=== PATIENT | male | born 1985 | race Caucasian/White ===

== ENCOUNTER 2021-08-03 20:40 | Emergency (ER) | payer OTHER, SELFPAY ==
[2021-08-03 20:41] VITALS: BP 128/72; PULSE 71; RESP 15; TEMP 36.2; O2SAT 99; BMI 23.1
[2021-08-03 21:27] VITALS: BP 111/62; RESP 16; O2SAT 98
--- NOTE | 2021-08-03 22:04 | EX.ED.DYSGE1 ---
HPI History of Present Illness Chief Complaint: ETOH Intox Informant: patient and spouse/S.O. Onset/Context/Timing Onset: Today Narrative Narrative: Patient's called EMS due to decreased level of consciousness and vomiting. She did not realize that he had been drinking alcohol all night. Patient states he feels fine except for nausea and being intoxicated. It sounds like according to nurses and EMS, the found out he was drinking at all upon her arrival here and talking with the nurses. On further discussion, these 2 adults have children that they have a phthalic acid purifier for, and the phthalic acid purifier was arrested this morning after they discovered that he was illegally involved in child pornography. The states it has been a bad day, and this is just the lei on top. They both feel bad about being here, I asked if the patient was having thoughts of harming himself, he did not answer. The states that he is feeling guilty about this whole ordeal, and stressed and it is just the alcohol talking. They already have CPS involved with regards to the social situation at their home. [facility] Medical History Coarctation of aorta Home Medications promethazine 25 mg PO Q6H PRN PRN #10 tablet 12/19/14 [Rx Last Taken Unknown] Allergy/AdvReac Type Severity Reaction Status Date / Time amoxicillin [Amoxicillin] Allergy Swelling Verified 08/03/21 20:41 Social History Smoking Status: Former smoker ROS ROS ED Constitutional Constitutional ED: Denies chills or fever(s) Eyes Eyes: Denies change in vision or diplopia ENT ENT ED: Denies rhinorrhea or sore throat Cardiovascular Cardiovascular: Denies chest pain or palpitations Respiratory/Chest Respiratory/Chest: Denies cough or dyspnea Gastrointestinal Gastrointestinal: Reports nausea and vomiting; Denies abdominal pain or diarrhea Genitourinary Genitourinary ED: Denies dysuria or hematuria Musculoskeletal Musculoskeletal: Denies back pain or neck pain Integumentary Denies abscess or rash Neurologic Neurologic: Denies headache(s), paresthesias or weakness Psychiatric Psychiatric: Reports as per HPI, anxiety and depression EXAM Physical Exam Const Vital Signs: 08/03/21 20:41 08/03/21 21:27 Temperature 97.2 F L Temperature Source Temporal Pulse Rate 71 Respiratory Rate 15 16 Blood Pressure 128/72 H 111/62 Blood Pressure Mean 90 78 Blood Pressure Source Monitor Blood Pressure Position Sitting Blood Pressure Location Left Arm Pulse Ox 99 98 Oxygen Delivery Method Room Air Room Air Positive well nourished and well developed Constitutional Narrative: Patient appears intoxicated but is conversive and cooperative in no distress General Appearance ED: well developed and NAD HEENT Reports moist mucous membranes normocephalic and atraumatic Eyes PERRL and EOMs intact bilaterally Neck full ROM and supple Resp normal respiratory effort and clear to auscultation bilaterally Cardio regular rate, regular rhythm and no murmurs GI non-tender and non-distended Auscultation: normoactive bowel sounds Palpation: soft Back/Spine no CVA tenderness General Back: other FROM Extremity normal to inspection General Extremety ED: Negative for edema, pulses abnormal or tenderness General Extremity: Negative for edema or pulses abnormal Neuro oriented x3, CN's II-XII intact bilaterally and no sensory deficits noted Sensorium / Orientation: awake and alert Motor Exam: strength 5/5 throughout Psych Psych Narrative: Depressed affect without active suicidal ideation, hallucinations, or delusions. Logical goal-directed thoughts intact. Skin no rashes or lesions noted and no wounds MDM MDM MDM Narrative Medical decision making narrative: Patient was treated with a liter of IV fluid and Zofran, he was able to tolerate oral fluids after that, and was feeling somewhat better. After discussion with he and his , he contracts verbally for safety, he does not feel suicidal, and he and his both are comfortable going home together. Discharge Plan Triage Chief Complaint: ETOH Intox Other Complaint: Syncope ED Provider: Alexi Johnson Dx/Rx/DC Orders Clinical Impression: Alcohol intoxication Instructions: ED Alcohol Intoxication Prescriptions: No Action promethazine 25 MG tablet 25 mg PO Q6H PRN PRN (Reason: Nausea) Qty: 10 RF: 0 Primary Care Provider: Care Physician,No Primary Referrals: Leticia Ríos [NON-STAFF] - As Needed Care Physician,No Primary [Primary Care Provider] - Disposition Disposition: Home, Self Care
[2021-08-03] MEDS: 0.9% Normal Saline 1,000 ML 999 ML IV (22:15)
[2021-08-03 22:20] VITALS: BP 115/57
[2021-08-03] MEDS: Ondansetron 4 MG/2 ML Vial IV (22:20)
[2021-08-03 23:07] VITALS: BP 105/74
[2021-08-03 23:08] VITALS: BP 105/74; PULSE 78; RESP 17; O2SAT 98
== END 2021-08-03 23:23 | disposition home or self-care (01) ==
PROVIDERS: Emergency Provider Emergency Medicine; Visit Provider Emergency Medicine
DX: F10.129 Alcohol abuse with intoxication, unspecified (principal); R55 Syncope and collapse; R11.10 Vomiting, unspecified; Z87.891 Personal history of nicotine dependence
CPT/HCPCS: 96361; 96374; 99284; J7030; A4216; J2405

== ENCOUNTER 2023-09-19 21:18 | Emergency (ER) | payer MEDICAID, SELFPAY ==
[2023-09-19 21:19] VITALS: BP 143/83; PULSE 87; RESP 16; TEMP 36.4; O2SAT 99; BMI 25.4
[2023-09-19 21:21] VITALS: BP 147/83; PULSE 87; RESP 16; TEMP 36.4; O2SAT 99
[2023-09-19 22:21] VITALS: BP 126/68; PULSE 71; RESP 19; TEMP 36.9; O2SAT 96
--- NOTE | 2023-09-19 23:19 | EX.ED.DYSGE1 ---
HPI History of Present Illness Chief Complaint: Cellulitis Informant: patient Onset/Context/Timing Onset: Yesterday Context: Gradual Onset Timing: Continuous Quality: pruritic Location: forehead, left face/neck Current Severity: Mild Maximum Severity: Mild Worsened by: nothing Relieved by: nothing, but hasn't tried anything Associated Symptoms Associated Symptoms: none Narrative Narrative: Patient states he noticed a bump in his left forehead/just behind the hairline, he states it is itchy, he does not know how he got it, and he started having redness spreading down his left face and into his left neck. There is no pain. No fevers or chills or any other systemic symptoms. [facility] Medical History Coarctation of aorta Home Medications aripiprazole 2 mg tablet 1 mg PO QHS 09/19/23 [History Last Taken Unknown] Allergy/AdvReac Type Severity Reaction Status Date / Time amoxicillin [Amoxicillin] Allergy Swelling Verified 09/19/23 21:19 Social History Smoking Status: Former smoker ROS ROS ED Constitutional Constitutional ED: Denies chills or fever(s) ENT ENT ED: Reports as per HPI; Denies ear pain, facial pain or sore throat Integumentary Reports as per HPI, pruritus and rash Neurologic Neurologic: Denies headache(s), paresthesias or weakness EXAM Physical Exam Const Vital Signs: 09/19/23 21:19 09/19/23 21:21 09/19/23 22:21 Temperature 97.6 F L 97.6 F L 98.5 F Temperature Source Temporal Temporal Oral Pulse Rate 87 87 71 Respiratory Rate 16 16 19 H Blood Pressure 143/83 H 147/83 H 126/68 H Blood Pressure Mean 103 104 87 Pulse Ox 99 99 96 Oxygen Delivery Method Room Air Positive well nourished and well developed General Appearance ED: well developed and NAD HEENT HEENT Narrative: Nontender small subcutaneous lump near the hairline left upper forehead, there does appear to be 1 or 2 small bite castillo here, there is no fluctuance, it is not tender and the skin is fairly normal-appearing overlying it except for the 2 bite castillo. They are not very close to each other to suggest a bat bite. They are otherwise nonspecific. There is mild erythema throughout much of the forehead and the left cheek and down into the left neck, within his myers which does limit some of the evaluation. There is no palpable lymphadenopathy. None of the erythematous area is tender. If swollen it is very mild, there is no gross asymmetry of his face. There is no periauricular lymphadenopathy or Márquez sign. Eyes PERRL and EOMs intact bilaterally Neck no lymphadenopathy and supple General: Negative for tenderness Neuro oriented x3, CN's II-XII intact bilaterally and no sensory deficits noted Motor Exam: strength 5/5 throughout Psych mental status grossly normal Skin no wounds Skin Narrative: See HEENT MDM MDM MDM Narrative Medical decision making narrative: This appears to be an insect bite with a local allergic reaction. It does not appear to be infected. I do not recommend antibiotics at this time. He states it is not that itchy just really wanted to make sure was not infected so he declines treatment. If he wants to use hydrocortisone 1% twice a day for no more than 1 week that would be reasonable. We discussed reasons to return, as things do/can change. Discharge Plan Triage Chief Complaint: Cellulitis ED Provider: Alexi Johnson Dx/Rx/DC Orders Clinical Impression: Insect bite of face with local reaction Instructions: ED Insect Sting, Local Reaction Prescriptions: No Action aripiprazole 2 mg tablet 1 mg PO QHS Primary Care Provider: Care Physician,No Primary Referrals: Care Physician,No Primary [Primary Care Provider] - Doctor,Your [Non-Staff] - (or ER if worse/painful) Activity Restrictions/Additional Instructions: If very itchy may try oral Benadryl, topical Benadryl cream, or topical hydrocortisone 1% cream no more than twice a day, no more than 1 week. Disposition Disposition: Home, Self Care
[2023-09-19 23:34] VITALS: BP 119/76; PULSE 89; RESP 16; TEMP 37.1; O2SAT 99
== END 2023-09-19 23:35 | disposition home or self-care (01) ==
LOC: ED 23:27
PROVIDERS: Emergency Provider Emergency Medicine; Visit Provider Emergency Medicine
DX: S00.96XA Insect bite (nonvenomous) of unspecified part of head, initial encounter (principal); Z87.891 Personal history of nicotine dependence; W57.XXXA Bitten or stung by nonvenomous insect and other nonvenomous arthropods, initial encounter
CPT/HCPCS: 99282

== ENCOUNTER 2023-11-06 19:51 | Emergency (ER) | payer MEDICAID, SELFPAY ==
[2023-11-06] VITALS (13 sets, daily range): BP systolic 107–151; BP diastolic 65–83; PULSE 60–88; RESP 13–18; TEMP 36.5–36.6; O2SAT 93–99; BMI 26.6
--- NOTE | 2023-11-06 20:54 | EKG12_ITS ---
Test Reason : Blood Pressure : / mmHG Vent. Rate : 074 BPM Atrial Rate : 074 BPM P-R Int : 136 ms QRS Dur : 106 ms QT Int : 368 ms P-R-T Axes : 038 038 000 degrees QTc Int : 408 ms Normal sinus rhythm Normal ECG Confirmed by Gelacio Covarrubias ([id number]), metropolitan editor HAN DOMINGUEZ ([id number]) on 11/07/2023 1:00:21 PM Referred By: Confirmed By:Gelacio Covarrubias
--- NOTE | 2023-11-06 20:55 | RAD_ITS ---
STUDY: X-RAY CHEST REASON FOR EXAM: Male, 38 years old. chest pain TECHNIQUE: Single AP portable view of the chest. COMPARISON: None. FINDINGS: The lungs are clear and expanded. There is no demonstrated pleural abnormality. Normal size heart. Normal mediastinum and roddy. Normal visualized pulmonary arteries. Normal visualized aortic arch and descending thoracic aorta. Normal visualized thoracic spine. Deformity of the left fifth and sixth ribs likely from prior trauma. There is no demonstrated abnormality of the visualized soft tissue structures of the upper abdomen. RAD/Chest 1 View (Portable) IMPRESSION: No active disease. Electronically Signed: Mekhi King MD at 21:18 EDT ,
--- NOTE | 2023-11-06 20:56 | EDS_ITS ---
HPI History of Present Illness Chief Complaint: Upper Extremity Injury Narrative Narrative: 38-year-old male presenting with acute onset left shoulder pain. He states it hurts in the left deltoid and the left triceps and this started out of nowhere. He does not remember any injury. He states the only thing he is really lifted is his kids which is normal for him. He has not had any trauma. He states that the pain became very severe and he became sweaty and nauseous. Patient states he does not have a history of this. Denies cardiac history. States he used to be a smoker but no longer is. Denies fever, chills, cough. No DVT/PE risk factors. Patient states that 20 minutes after he arrived to the ER while he was sitting in the room he had some chest pain which resolved and then he lasted a few minutes. He did not tell nursing staff this. [facility] Medical History Bicuspid aortic valve Coarctation of aorta Home Medications ?Medication ?Instructions ?Recorded ?Last Taken ?Type aripiprazole 2 mg tablet 1 mg PO QHS 09/19/23 Unknown History Allergy/AdvReac Type Severity Reaction Status Date / Time amoxicillin (Amoxicillin) Allergy Swelling Verified 09/19/23 21:19 Social History Smoking Status: Former smoker ROS ROS ED Constitutional Constitutional ED: Reports sweats; Denies chills or fever(s) Eyes Eyes: Denies blurry vision or change in vision ENT ENT ED: Denies ear pain or sore throat Cardiovascular Cardiovascular: Reports chest pain; Denies palpitations or racing heartbeat Respiratory/Chest Respiratory/Chest: Denies cough, dyspnea or sputum Gastrointestinal Gastrointestinal: Reports nausea; Denies abdominal pain, constipation, diarrhea or vomiting Genitourinary Genitourinary ED: Denies dysuria, hematuria or urinary frequency Musculoskeletal Musculoskeletal: Reports other Details: Left shoulder pain ; Denies arthralgias, myalgias or neck pain Integumentary Denies abscess, Abrasions or rash Neurologic Neurologic: Denies headache(s), paresthesias or weakness Psychiatric Psychiatric: Denies anxiety, depression, suicidal ideation or suicidal thoughts Endocrine Endocrinology: Denies polydipsia or polyuria EXAM Physical Exam Const Vital Signs: 11/06/23 19:53 11/06/23 20:01 11/06/23 20:02 Temperature 97.7 F L Temperature Source Temporal Pulse Rate 88 70 Respiratory Rate 14 18 Respiratory Effort Normal Respiratory Pattern Normal Blood Pressure 151/83 H 124/80 H Blood Pressure Mean 105 94 Pulse Ox 98 96 Oxygen Delivery Method Room Air Room Air 11/06/23 20:17 11/06/23 20:30 11/06/23 20:45 Temperature Temperature Source Pulse Rate 72 72 72 Respiratory Rate 13 17 17 Respiratory Effort Respiratory Pattern Blood Pressure 110/71 Blood Pressure Mean 84 Pulse Ox 94 93 94 Oxygen Delivery Method 11/06/23 20:57 11/06/23 21:00 11/06/23 21:15 Temperature Temperature Source Pulse Rate 75 71 Respiratory Rate 17 15 Respiratory Effort Respiratory Pattern Blood Pressure 121/73 H Blood Pressure Mean 85 Pulse Ox 99 97 Oxygen Delivery Method Room Air Room Air 11/06/23 21:30 11/06/23 21:45 11/06/23 22:00 Temperature Temperature Source Pulse Rate 70 70 65 Respiratory Rate 15 14 14 Respiratory Effort Respiratory Pattern Blood Pressure 107/74 108/66 Blood Pressure Mean 84 79 Pulse Ox 97 97 97 Oxygen Delivery Method Room Air 11/06/23 22:15 11/06/23 22:30 11/06/23 23:00 Temperature 98 F Temperature Source Pulse Rate 68 60 Respiratory Rate 16 14 Respiratory Effort Respiratory Pattern Blood Pressure 112/65 Blood Pressure Mean 80 Pulse Ox 97 96 99 Oxygen Delivery Method Positive well developed General Appearance ED: well developed and NAD HEENT Reports moist mucous membranes normocephalic Eyes PERRL and EOMs intact bilaterally Chest Wall inspection of chest normal and palpation of chest normal Resp normal respiratory effort and clear to auscultation bilaterally Auscultation: Negative for rales, rhonchi or wheezes Cardio regular rate and regular rhythm Extremity Extremity Narrative: There is tenderness to palpation of the left deltoid and the left tricep which is mild. There is no rashes or bruising. When the patient extends the left shoulder or abduct the left shoulder this elicits the pain. Also elicited with extension of the left elbow in the triceps region. The pain is very mild. No limitation in range of motion. Neuro oriented x3 and CN's II-XII intact bilaterally Sensorium / Orientation: awake Motor Exam: strength 5/5 throughout Psych mental status grossly normal Skin no rashes or lesions noted Heart Score History: Slightly/Non-Suspicious ECG: Normal Age: </= 45 years Risk Factors: 1 or 2 Risk Factors Score: 1 MDM MDM MDM Narrative Medical decision making narrative: Patient presenting with left shoulder pain initially and stated he was sweaty and nauseous. He states he had chest pain after he arrived in told nursing staff. He states that the left shoulder pain has been ongoing for 2 hours and although it is reproducible he does not have any injury. Differential includes ACS, pneumonia, muscle strain, rib strain, dehydration, anemia, electrolyte abnormalities. Considered PE however the patient has no risk factors and is PERC negative. Patient declines analgesia at this time he is not having any chest pain right now. CBC will be obtained to assess white blood cell count, hemoglobin, platelets. BMP to assess renal function, electrolytes, glucose. High-sensitivity troponin EKG to assess for ischemia/dysrhythmia. Chest x-ray to rule out pneumonia or other acute process. CBC shows normal blood cell count of 6.4. Hemoglobin 14.5. Platelets are normal at 157. Renal function electrolytes within normal limits. High-sensitivity troponin 16. EKG interpreted by myself shows a normal sinus rhythm at a ventricular rate of 74 bpm without sign ischemic change or ectopy. Chest x-ray my interpretation shows no acute cardiopulmonary process. The radiologist interprets this and agrees. Patient was counseled on additional finding. We are awaiting a delta troponin. Patient has not had return of the chest pain. Declines analgesia. Delta troponin came back at 19 therefore this is a significant interval change. Discussed the patient's pain in her shoulders reproducible and likely musculoskeletal. It is unclear the etiology of his chest pain but does not appear to be cardiac. He acknowledges understanding. Return precautions discussed Impression: 1. Chest pain 2. Left shoulder pain Lab Data Attestation: I reviewed the patient's lab results. Labs: Laboratory Results - last 24 hr 11/06/23 11/06/23 20:09 22:38 WBC 6.4 RBC 4.75 Hgb 14.5 Hct 42.8 MCV 90.1 MCH 30.5 MCHC 33.9 RDW Std Deviation 39.5 RDW Coeff of Capo 12.1 Plt Count 157 MPV 11.3 Immature Gran % (Auto) 0.500 Neut % (Auto) 50.8 Lymph % (Auto) 39.5 [place] % (Auto) 5.9 Eos % (Auto) 2.5 Baso % (Auto) 0.8 Absolute Neuts (auto) 3.3 Absolute Lymphs (auto) 2.53 Nucleated RBC % 0 Sodium 141 Potassium 3.6 Chloride 107 Carbon Dioxide 28.0 Anion Gap 6 BUN 16 Creatinine 1.14 Estim Creat Clear Calc 107.07 Est GFR (MDRD) Af Amer 93 Est GFR (MDRD) Non-Af 77 BUN/Creatinine Ratio 14.0 Glucose 118 H Calcium 9.4 Troponin I High Sens 16 19 Radiography Diagnostic Testing: Clinical Impression(s) from Imaging Studies Chest X-Ray 11/06/23 20:55 IMPRESSION: No active disease. Electronically Signed: Mekhi King MD at 21:18 EDT , Discharge Plan Triage Chief Complaint: Upper Extremity Injury ED Provider: Golden Kimball Dx/Rx/DC Orders Instructions: ED Chest Pain, Noncardiac, ED Muscle Strain, Extremity Prescriptions: No Action aripiprazole 2 mg tablet 1 mg PO QHS Primary Care Provider: Care Physician,No Primary Referrals: Care Physician,No Primary [Primary Care Provider] - Print Language: Slovenian Disposition Disposition: Home, Self Care Discharge Date/Time: 11/06/23 23:46
[2023-11-06 21:07] LABS: Absolute Lymphocyte Count 2.53 X10^3/uL (0.83-4.51); Absolute Neutrophil Count 3.3 X10^3/uL (2.0-7.7); Basophil# 0.05 X10^3/uL; Basophil% 0.8 % (0-1); Eosinophil# 0.16 X10^3/uL; Eosinophils% 2.5 % (0-5); Hematocrit 42.8 % (40-54); Hemoglobin 14.5 g/dL (13.0-16.5); Lymphocyte # 2.53 X10^3/ul (0.83-4.51); Lymphocyte % 39.5 % (19-41); Mean Corp Hgb Conc 33.9 g/dL (32-36); Mean Corpuscular Hgb 30.5 pg (27.0-32.0); Mean Corpuscular Volume 90.1 fL (80-94); Mean Platelet Vol. 11.3 fl (6.2-12.0); Monocyte# 0.38 X10^3/uL; Monocyte% 5.9 % (0-10); NRBC Flagged by Analyzer 0 % (0-5); Neutrophil # 3.25 X10^3/uL (2.7-7.7); Neutrophil % 50.8 % (47-70); Platelet Count 157 K/mm3 (150-450); RBC Distribution Width CV 12.1 % (11.6-14.6); RBC Distribution Width SD 39.5 fl (35.1-43.9); Red Blood Count 4.75 M/mm3 (4.6-6.2); White Blood Count 6.4 K/mm3 (4.4-11.0)
[2023-11-06 21:31] LABS: Anion Gap 6 (5-15); BUN 16 mg/dL (7-18); Calcium,Total 9.4 mg/dL (8.5-10.1); Chloride 107 mmol/L (98-107); Creatinine, Serum 1.14 mg/dL (0.70-1.30); EST Glomerular Filtration Rate 77 mL/min (>60); Est Glom Filt Rate - Afr Amer 93 mL/min (>60); Estimated Creatinine Clearance 107.07 ml/min; Glucose 118 mg/dL (74-106); Potassium 3.6 mmol/L (3.5-5.1); Sodium Level 141 mmol/L (136-145); Troponin-I HS (w/2H Reflex) 16 pg/mL (3.0-78.0)
[2023-11-06 23:03] LABS: Reflex Troponin-HS? (from REC) Y
[2023-11-06 23:30] LABS: Troponin-I HS 19 pg/mL (3.0-78.0)
== END 2023-11-06 23:46 | disposition home or self-care (01) ==
PROVIDERS: Emergency Provider Student in an Organized Health Care Education/Training Program; Visit Provider Student in an Organized Health Care Education/Training Program
DX: R07.9 Chest pain, unspecified (principal); Z87.891 Personal history of nicotine dependence; M25.512 Pain in left shoulder
CPT/HCPCS: 71045; 80048; 84484; 85025; 93005; 99285; A4216